=== PATIENT | female | born 1995 | race Caucasian/White ===

== ENCOUNTER 2016-04-30 20:26 | Emergency (ER) | payer BC ==
[~2016-04-30] VITALS: Ht 160 cm; Wt 56.7 kg
[~2016-04-30 20:26] MED LIST: BCPILLS PO
[2016-04-30 20:32] VITALS: TEMP 37; Ht 160 cm; Wt 56.7 kg
[2016-04-30] MEDS ORDERED: ACETAMINOPHEN 500 MG TAB PO STA (21:07)
[2016-04-30] MEDS ORDERED: IBUPROFEN 600 MG TAB PO STA (21:07)
--- NOTE | 2016-04-30 22:09 | DIAGNOSTIC IMAGING REPORT ---
CT OF THE HEAD WITHOUT CONTRAST CLINICAL HISTORY: Fall. Facial/head/neck injury. COMPARISON STUDY: No previous studies for comparison. TECHNIQUE: Helical axial images of the head were obtained without IV contrast. Automated exposure control was utilized for the study. FINDINGS: No acute intracranial hemorrhage, midline shift or mass effect is present. Brain volume is normal. Ventricular system is normal. The basilar cisterns are patent. No extra-axial collections are present. Partida-white differentiation is maintained. There is no calvarial fracture. IMPRESSION: 1. No acute intracranial findings. 2. No calvarial fracture. Electronically signed by: Terry Kruse M.D. 04/30/2016 10:07 PM Dictated Date/Time: 04/30/2016 10:05 PM
--- NOTE | 2016-04-30 22:12 | DIAGNOSTIC IMAGING REPORT ---
MAXILLOFACIAL CT WITHOUT CONTRAST CLINICAL HISTORY: Fall. Facial/head/neck injury. COMPARISON STUDY: Nasal bone radiographs December 10, 2013 TECHNIQUE: A maxillofacial CT was performed without IV contrast. Coronal and sagittal reformats were viewed. FINDINGS: No acute facial fracture is identified. The globes are intact. There is no retrobulbar hematoma. Alignment of the temporomandibular joints is anatomic. IMPRESSION: No acute facial fracture. Electronically signed by: Terry Kruse M.D. 04/30/2016 10:11 PM Dictated Date/Time: 04/30/2016 10:08 PM
--- NOTE | 2016-04-30 22:14 | DIAGNOSTIC IMAGING REPORT ---
CT OF THE CERVICAL SPINE WITHOUT CONTRAST CLINICAL HISTORY: Fall. Facial/head/neck injury. COMPARISON STUDY: No previous studies for comparison. TECHNIQUE: Helical axial images of the cervical spine were obtained without IV contrast. Sagittal and coronal reconstructions were viewed. FINDINGS: Alignment of the cervical spine is anatomic. The craniocervical junction is intact. There is no acute cervical spine fracture. There is no prevertebral edema. Facet joints are intact. There is no pneumothorax within visualized portions of the lung apices. IMPRESSION: No acute cervical spine fracture or subluxation. Electronically signed by: Terry Kruse M.D. 04/30/2016 10:13 PM Dictated Date/Time: 04/30/2016 10:11 PM
[2016-04-30 22:40] VITALS: BP 114/78; PULSE 68; O2SAT 100
--- NOTE | 2016-04-30 23:57 | EMERGENCY ROOM VISIT NOTE ---
History First contact with patient: 20:56 Chief Complaint: NASAL PAIN/INJURY Stated Complaint: POSSIBLE BROKEN NOSE History of Present Illness The patient is a 20 year old female who presents to the Emergency Room with complaints of facial injury that occurred about one hour ago. The patient is a performing arts dancer, and states that she was trying to perform a maneuver where she jumped into the air, and comes to the ground in a split with her arms above her head. The patient jumped, came to the ground, and slipped, striking the front of her face off the ground. She did not lose consciousness or have seizure-like activity after the injury. The event was witnessed by medics, who were able to immediately attended the patient. The patient has been slightly confused and nauseated. She does have pain of her face, nose, head, and neck. She rates her overall discomfort a 7/10. The patient is not on blood thinners and considers herself otherwise usually healthy. Review of Systems More than 10 systems were reviewed and otherwise negative with the exception of history of present illness. Past Medical/Surgical History Medical Problems: (1) No significant medical problems Surgical Problems: (1) History of tonsillectomy (2) Hx of tympanostomy tubes Family History Patient reports no known family medical history. Social History Smoking Status: Never Smoker Alcohol Use: occasionally Drug Use: none Marital Status: single Housing Status: lives with roommate Occupation Status: [employer] student Current/Historical Medications Scheduled Control Pills ( Control Pills), 1 TAB PO DAILY Allergies Coded Allergies: No Known Allergies (Unverified , 06/16/13) Physical Exam Vital Signs Date Time Temp Pulse Resp B/P Pulse Ox O2 Delivery O2 Flow Rate FiO2 04/30/16 22:40 68 16 114/78 100 04/30/16 20:32 37.0 71 18 117/77 100 Room Air Pain Rating (0-10): 3.0 Physical Exam VITALS: Vitals are noted on the nurse's note and reviewed by myself. Vital signs stable. GENERAL: Well-developed, well-nourished, white female, who is in no acute distress and resting comfortably. Patient is cooperative with the examination. HEAD: Positive tenderness appreciated over the maxillary and frontal sinuses on percussion EARS: External ear normal. External auditory canals clear, tympanic membranes pearly partida without erythema or effusion bilaterally. EYES: Pupils equal round and reactive to light and accommodation. Conjunctivae without injection, sclerae without icterus. Extraocular movements intact. NOSE: Edema and ecchymosis over the bridge of the nose noted. There is no epistaxis or septal hematoma MOUTH: Mucous membranes moist. Tonsils are absent. Pharynx without erythema, blood, or exudate. Uvula midline. Airway patent. NECK: Supple without nuchal rigidity. No lymphadenopathy. No thyromegaly. Cervical spine is slightly tender over the C2 to C4 distribution HEART: Regular rate and rhythm without murmurs gallops or rubs. LUNGS: Clear to auscultation bilaterally without wheezes, rales or rhonchi. No retractions or accessory muscle use. MUSCULOSKELETAL: No muscle atrophy, erythema, or edema noted. Full range of motion without joint tenderness in all extremities. NEURO: Patient was alert and oriented to person place and time. CN II through XII grossly intact. Deep tendon reflexes 2+ throughout. No focal neurological deficits SKIN: The skin was without rashes, erythema, edema, or bruising. Capillary reflex less than 2 seconds. Medical Decision & Procedures ER Provider Diagnostic Interpretation: CT OF THE HEAD WITHOUT CONTRAST CLINICAL HISTORY: Fall. Facial/head/neck injury. COMPARISON STUDY: No previous studies for comparison. TECHNIQUE: Helical axial images of the head were obtained without IV contrast. Automated exposure control was utilized for the study. FINDINGS: No acute intracranial hemorrhage, midline shift or mass effect is present. Brain volume is normal. Ventricular system is normal. The basilar cisterns are patent. No extra-axial collections are present. Partida-white differentiation is maintained. There is no calvarial fracture. IMPRESSION: 1. No acute intracranial findings. 2. No calvarial fracture. CT OF THE CERVICAL SPINE WITHOUT CONTRAST CLINICAL HISTORY: Fall. Facial/head/neck injury. COMPARISON STUDY: No previous studies for comparison. TECHNIQUE: Helical axial images of the cervical spine were obtained without IV contrast. Sagittal and coronal reconstructions were viewed. FINDINGS: Alignment of the cervical spine is anatomic. The craniocervical junction is intact. There is no acute cervical spine fracture. There is no prevertebral edema. Facet joints are intact. There is no pneumothorax within visualized portions of the lung apices. IMPRESSION: No acute cervical spine fracture or subluxation. MAXILLOFACIAL CT WITHOUT CONTRAST CLINICAL HISTORY: Fall. Facial/head/neck injury. COMPARISON STUDY: Nasal bone radiographs December 10, 2013 TECHNIQUE: A maxillofacial CT was performed without IV contrast. Coronal and sagittal reformats were viewed. FINDINGS: No acute facial fracture is identified. The globes are intact. There is no retrobulbar hematoma. Alignment of the temporomandibular joints is anatomic. IMPRESSION: No acute facial fracture. Medications Administered Medications (Trade) Dose Ordered Sig/Maryam Route Start Time Stop Time Status Last Admin Dose Admin Acetaminophen (Tylenol Tab) 1,000 mg NOW STAT PO 04/30/16 21:07 04/30/16 21:09 DC 04/30/16 21:07 1,000 MG Ibuprofen (Motrin Tab) 600 mg NOW STAT PO 04/30/16 21:07 04/30/16 21:09 DC 04/30/16 21:07 600 MG ED Course Physical exam and history were performed. Nursing notes and EMR were reviewed. Patient appears to have suffered injury directly to her face when she struck her head off a floor at a [employer] performance seething. I discussed options of care with the patient, and we elected for CT imaging. The patient was given ibuprofen and Tylenol here in the department for comfort. The patient CT scans are as above and were reviewed by myself and radiology. The patient does not appear to have an acute fracture or dislocation. Overall she did have some improvement of her discomfort after analgesics. I suspect her discomfort is from the contusion injury, and should improve with conservative management. If the patient has persisting concerns about the cosmetic outcome of her nose, I did recommend that she follow with ENT within the next 2 weeks. The patient was otherwise invited back to the ER with any new , worsening, or concerning symptoms. We did discuss the possibility of concussion related symptoms, and I stressed the importance of [facility] follow-up as well. The patient was pleased with this and voiced understanding. She was otherwise invited back to the ER with any new, worsening , or concerning symptoms. The chart was completed utilizing [employer] Voice Recognition Software. Grammatical errors, random word insertions, pronoun errors, and incomplete sentences are an occasional consequence of this system due to software limitations, ambient noise, and hardware issues. Any formal questions or concerns about the content, text, or information contained within the body of this dictation should be directly addressed to the provider for clarification. . Medical Decision Differential diagnosis: Etiologies such as concussion, contusion, fracture, subdural hematoma, epidural hematoma, intraparenchymal hemorrhage, as well as other traumatic pathologies were entertained. Impression Primary Impression: Facial injury Additional Impression: Closed head injury Departure Information Dispostion Home / Self-Care Condition GOOD Referrals Rigoberto Brown MD Forms HOME CARE DOCUMENTATION FORM, IMPORTANT VISIT INFORMATION Patient Instructions My [facility] Additional Instructions You were seen and evaluated today on an emergency basis only. This is not a substitute for, or an effort to provide, complete comprehensive medical care. It is not possible to recognize and treat all injuries or illnesses in a single emergency department visit. For this reason it is recommended that you followup with ENT, Dr. Brown's office, if you have worsening cosmetic concerns over the next 1-2 weeks. For baseline pain relief you may alternate ibuprofen and acetaminophen every 4 hours for pain control. Take 600 mg ibuprofen (Advil) and then 4 hours later take 1000 mg acetaminophen (Tylenol). Do not take more than 3000 mg acetaminophen in a single day. You are welcome to return to the emergency department anytime with new, worsening, or concerning symptoms. Problem Qualifiers
== END 2016-04-30 22:41 | disposition home or self-care (01) ==
LOC: C.EDB 20:28 → C.EDD 22:41
DX: S09.93XA Unspecified injury of face, initial encounter (principal); S09.90XA Unspecified injury of head, initial encounter; W01.0XXA Fall on same level from slipping, tripping and stumbling without subsequent striking against object, initial encounter; Z98.890 Other specified postprocedural states